=== PATIENT | male | born 1965 | race Caucasian/White ===

== ENCOUNTER 2016-03-28 09:14 | Observation (INO) | payer OTHER ==
[2016-03-28] MEDS ORDERED: DIAZEPAM 5 MG TAB PO ONE (09:17)
[2016-03-28] MEDS ORDERED: diphenhydrAMINE 25 MG CAP PO ONE ×3 (09:17→09:44)
[2016-03-28] MEDS ORDERED: NS 1,000 ML IV ONE (09:17)
[2016-03-28] MEDS ORDERED: ceFAZolin 2 GM/DEXTROSE 100 ML IV ONE (09:17)
[2016-03-28] MEDS ORDERED: BACITRACIN IRRIGATION/NS 50,000 UNITS/1,000 ML BTL IRR ONE (09:17)
--- NOTE | 2016-03-28 09:32 | CPEKG ---
Heart Rate: 50 RR Interval: 1200 P-R Interval: 144 QRSD Interval: 92 QT Interval: 480 QTC Interval: 438 P [place]: 60 QRS [place]: 11 T Wave [place]: 38 EKG Severity - NORMAL ECG - EKG Impression: SINUS RHYTHM Electronically Signed By: Mehul Arceo 28-Mar-2016 10:56:02
[2016-03-28] MEDS ORDERED: DIAZEPAM 5 MG TAB ONE (09:44)
[2016-03-28 09:52] LABS: % IMMATURE GRANULYOCYTES 0.2 % (0.0-1.1); ABSOLUTE IMMATURE GRANULOCYTES 0.01 10^3/uL (0.00-0.10); ADD DIFF? NO; ADD MORPH? NO; ADD SCAN? NO; ATYPICAL LYMPHOCYTE FLAG 20 (0-99); FRAGMENT RBC FLAG 0 (0-99); HEMATOCRIT 42.6 % (40.0-51.0); HEMOGLOBIN 14.9 g/dL (13.7-17.5); LEFT SHIFT FLG 0 (0-99); LIPEMIA HEMOLYSIS FLAG 90 (0-99); MEAN CELL HEMOGLOBIN 31.2 pg (27.9-34.1); MEAN CELL VOLUME 89.3 fL (81.5-99.8); MEAN PLATELET VOLUME 10.1 fL (8.7-11.7); PLATELET CLUMPS FLAG 0 (0-99); PLATELET COUNT 128 10^3/uL (150-400); RED BLOOD CELL COUNT 4.77 10^6/uL (4.40-6.38); RED CELL DISTRIBUTION WIDTH 11.9 % (11.5-15.2)
[2016-03-28 10:01] LABS: INR 1.08 (0.83-1.16); PROTIME(PATIENT) 13.9 SEC (12.0-15.0)
[2016-03-28 10:10] LABS: ANION GAP 12 mEq/L (8-16); CALCIUM 9.5 mg/dL (8.5-10.4); CARBON DIOXIDE 26 mEq/l (22-31); CHLORIDE 108 mEq/L (97-110); CREATININE 0.8 mg/dL (0.7-1.3); GLOMERULAR FILTRATION RATE > 60; GLUCOSE 92 mg/dL (70-100); SODIUM 146 mEq/L (134-144)
[2016-03-28] MEDS ORDERED: MIDAZOLAM 2 MG/2 ML VIAL ONE ×2 (11:51→13:09)
[2016-03-28] MEDS ORDERED: fentaNYL 100 MCG/2 ML INJ ONE ×2 (11:51→13:09)
[2016-03-28] MEDS ORDERED: LIDO/EPI 1% **for epidural** 30 ML SDV ONE (11:51)
[2016-03-28] MEDS ORDERED: LIDOCAINE 1% 30 ML SDV ONE (11:51)
[2016-03-28] MEDS ORDERED: BUPIVACAINE 0.5% 30 ML SDV ONE (11:51)
[2016-03-28] MEDS ORDERED: IOPAMIDOL (ISOVUE-300) 200 ML BTL IV ONE (11:52)
--- NOTE | 2016-03-28 12:44 | SUROPNOTE ---
[facility] Operative Report - Surgery Date of Procedure: 03/28/16 Indication: This patient is a 50 year old man presenting for placement of permanent pacemaker secondary to symptomatic bradycardia. The patient has a several month history of episodic periods of fatigue, weakness, and lethargy, associated with periods of sinus bradycardia. The patient has documented heart rates in the high 30s and low 40s associated with feeling poorly. These symptoms are moderate in severity and lifestyle limiting. He has had a normal R/ LHC, cardiac MRI, endocrine workup, and negative testing for lyme disease. Procedure Performed: 1. Placement of a dual chamber permanent pacemaker Description of procedure: Risks, benefits, and alternatives were discussed in detail. Informed consent was obtained. We discussed various options for devices. Patient was brought to the catheterization laboratory where a time out was performed. Left subclavian venography was performed via left arm IV, showing anatomically normal and widely patent left subclavian vein. Left anterior chest was sterilely prepped and draped. Patient received Ancef 2g intravenously. 2% lidocaine and 0.5% Marcaine were utilized for local anesthetic. A skin incision was made with a # 10 blade and carried down to pectoralis fascia using Bovie, and bleeders were cauterized. Site for the pocket was anesthetized with lidocaine with epinephrine. The pocket was created by blunt dissection and packed with single Ray-Camilla antibiotic-soaked gauze. The patient was placed in Trendelenburg position. Then, under fluoroscopic guidance, the subclavian vein was punctured with an 18-gauge thin wall needle and cannulated with 0.035 J-tip guidewire. An 8-British peel-away introducing sheath was placed through which a second 0.035 J- tip guidewire was placed. Sheath was removed and flushed, placed back over the original guidewire, establishing dual guidewire access. Then, through the sheath , a single coil active fixation right ventricular pacing lead was placed. This was positioned in the right ventricular apex and secured in place with the active fixation helix. There was adequate pacing and sensing, and the lead was sutured in place with a suture sleeve and two separate 0 Ethibond sutures. Then , over the second guidewire, a 6-British peel-away introducing sheath was placed through which the active fixation right atrial lead was passed. Using a J curved stylette, this was placed in the area of the right atrial appendage and secured in place with the active fixation helix. There was adequate pacing and sensing, and the lead was suture in place with a suture sleeve and two separate 0 Ethibond sutures. Ray-Camilla gauze was moved from the pocket. The pocket was copiously irrigated with antibiotic solution and coated with D-Stat liquid hemostat. Any sites of oozing were cauterized. Pacemaker generator was brought to the field, leads were connected to proper head ports, and all set screws were tightened. Generator was placed in the pocket with the leads posterior, and secured in place with a single 0 Ethibond suture. The pocket was then closed with interrupted layers of 2-0 and 3-0 Vicryl suture and running 4-0 subcuticular Stratafix suture. Benzoin, Steri-Strips, and Opsite were placed. Hardware Implanted: Pacemaker is a [employer]ronik Eluna 8 DR-T ProMRI, model 347215, serial [id number]. Right ventricular lead is a [employer] Solia S 53, model 317590, serial [id number] , threshold 0.6V @ 0.40ms, R wave sensing 8.1mV, impedance 643 Ohms. Right atrial lead is a Bi[employer]ik Solia S 45, model 835593, serial [id number], threshold 1.0V @ 0.40ms, P wave sensing 3.0mV, impedance 448 Ohms.
[2016-03-28] MEDS ORDERED: HYDROCODONE/APAP 5/325 TAB PO PRN (13:39)
[2016-03-28] MEDS ORDERED: OXYCODONE/APAP 5/325 TAB PO PRN (13:39)
--- NOTE | 2016-03-28 14:38 | CPEKG ---
Heart Rate: 60 RR Interval: 1000 P-R Interval: 188 QRSD Interval: 88 QT Interval: 428 QTC Interval: 428 QRS [place]: 3 T Wave [place]: 42 EKG Severity - ABNORMAL ECG - EKG Impression: ATRIAL-PACED RHYTHM Electronically Signed By: Mehul Arceo 28-Mar-2016 15:26:42
--- NOTE | 2016-03-28 16:02 | DX ---
Portable Chest at 1446 hours History: Post pacemaker placement. Comparison: PA and lateral chest March 01, 2012. Findings: Dual-lead left subclavian pacemaker has been placed with leads in expected position overlyi ng the right atrium and ventricle. There is no visible pneumothorax. The lungs are clear. Mild cardio megaly is exaggerated by low lung volumes. Rightward curvature of the thoracic spine is noted. Impression: Dual lead left subclavian pacemaker in expected position with no visible complication.
[2016-03-28] MEDS ORDERED: ACETAMINOPHEN 325 MG TAB PO PRN (19:13)
[2016-03-29 05:05] LABS: % IMMATURE GRANULYOCYTES 0.2 % (0.0-1.1); ABSOLUTE IMMATURE GRANULOCYTES 0.01 10^3/uL (0.00-0.10); ADD DIFF? NO; ADD MORPH? NO; ADD SCAN? NO; ATYPICAL LYMPHOCYTE FLAG 10 (0-99); FRAGMENT RBC FLAG 0 (0-99); HEMOGLOBIN 14.6 g/dL (13.7-17.5); LEFT SHIFT FLG 0 (0-99); LIPEMIA HEMOLYSIS FLAG 90 (0-99); MEAN CELL HEMOGLOBIN 31.3 pg (27.9-34.1); MEAN CELL HEMOGLOBIN CONCENTR. 34.8 g/dL (32.4-36.7); MEAN CELL VOLUME 89.9 fL (81.5-99.8); MEAN PLATELET VOLUME 10.2 fL (8.7-11.7); PLATELET CLUMPS FLAG 0 (0-99); PLATELET COUNT 120 10^3/uL (150-400); RED BLOOD CELL COUNT 4.67 10^6/uL (4.40-6.38); RED CELL DISTRIBUTION WIDTH 11.9 % (11.5-15.2)
[2016-03-29 05:22] LABS: ANION GAP 9 mEq/L (8-16); CALCIUM 8.9 mg/dL (8.5-10.4); CARBON DIOXIDE 24 mEq/l (22-31); CHLORIDE 107 mEq/L (97-110); CREATININE 0.7 mg/dL (0.7-1.3); GLOMERULAR FILTRATION RATE > 60; GLUCOSE 88 mg/dL (70-100); POTASSIUM 4.2 mEq/L (3.5-5.2); SODIUM 140 mEq/L (134-144)
[2016-03-29 07:59] VITALS: BP 129/82; PULSE 70; RESP 15; TEMP 98.4; O2SAT 95
[2016-03-29] MEDS ORDERED: FLUDROCORTISONE ACETATE 0.1 MG TAB PO SCH (09:00)
--- NOTE | 2016-03-29 09:18 | CPEKG ---
Heart Rate: 68 RR Interval: 882 P-R Interval: 140 QRSD Interval: 94 QT Interval: 396 QTC Interval: 422 P [place]: 47 QRS [place]: -1 T Wave [place]: 7 EKG Severity - ABNORMAL ECG - EKG Impression: ATRIAL-PACED COMPLEXES Electronically Signed By: Mehul Arceo 29-Mar-2016 13:16:29
--- NOTE | 2016-03-29 10:28 | SOAPPROG ---
SOAP Progress Note Assessment/Plan: Assessment: Cardiology ([facility]) 1. Symptomatic bradycardia s/p dual chamber PPM implantation on 03/28/15. There were no complications with the procedure. 12 lead EKG shows atrial paced complexes at 68 bpm. Pacer pocket is well-approximated w/ no signs of infection. He has received 3 doses of Ancef. CXR pending. 2. Hypotension, now normotensive since pacer implantation. He is currently treated w/ fludricortisone which I would like him to continue for the time being but high likelihood of dc'ing at follow up visit. Plan: 1. CXR pending. 2. Discharge to home today. 3. The patient will be having a dental procedure within the next week. He will need SBE prophylaxis with amoxicillin 2 g prior to. Rx sent to home pharmacy. 4. Rx for [place] for pain control. 5. Follow up visit scheduled for 04/06/16 at 330 pm 03/29/16 10:23 Objective: Vital Signs Temp Pulse Resp BP Pulse Ox 36.9 C 70 15 129/82 H 95 03/29/16 07:58 03/29/16 07:58 03/29/16 07:58 03/29/16 07:58 03/29/16 07:58 Laboratory Results 03/29/16 04:38 03/29/16 04:38 03/28/16 03/29/16 03/30/16 05:59 05:59 05:59 Intake Total 880 Output Total 750 Balance 130 PT 13.9 SEC (12.0-15.0) 03/28/16 09:43 INR 1.08 (0.83-1.16) 03/28/16 09:43 Physical Exam - Physical Exam General Appearance: WD/WN, alert, no apparent distress Respiratory: chest non-tender, lungs clear, normal breath sounds Cardiac/Chest: normal peripheral pulses, regular rate, rhythm, other (left pectoral pacer pocket well-approximated w/o erythemia, oozing, or swelling) Extremities: No swelling Neuro/Psych: no motor/sensory deficits, alert, normal mood/affect, oriented x 3
--- NOTE | 2016-03-29 10:47 | DX ---
PA and Lateral Chest 10:21 a.m. Indication: Pacemaker placement. Comparison: Portable chest dated 03/28/2016. Findings: A left anterior chest wall dual-lead pacemaker has leads well situated in the right atrium and right ventricle. No pneumothorax or pulmonary edema. Lungs are well aerated and clear. Heart size is normal. Impression: 1. Well-seated dual-lead pacemaker. 2. No pneumothorax or edema. 3. Clear lungs.
--- NOTE | 2016-03-29 19:07 | GDS ---
[f rep st] DISCHARGE SUMMARY DISCHARGE DIAGNOSES: 1. Symptomatic sinus bradycardia. 2. Status post dual chamber permanent pacemaker implantation this hospitalization. 3. Hypotension. HOSPITAL PROCEDURES: 1. Subclavian venography. 2. Placement of dual chamber permanent pacemaker. HOSPITAL COURSE: The patient is a 50-year-old male who presented to our office initially in 2015 with complaint of sinus bradycardia and related fatigue and exertional intolerance. He has un dergone an extensive cardiac workup including nuclear stress testing, echocardiography, multiple ambu latory EKG monitors and cardiac MRI, with no more advanced cardiac pathology underlying his bradycard ia. It had been decided to proceed with dual chamber permanent pacemaker implantation for symptomati c relief and improvement of quality of life. He underwent pacemaker implantation with Dr. Melquiades noguera. There were no complications with this procedure. The patient has done well overnight. The patient has no complaints this morning aside from some tenderness at his left pectoral incision s ite. Otherwise, the site looks very good with minimal swelling, ecchymosis or erythema. The wound i s well approximated with Steri-Strips. He denies any fever or chills overnight. Laboratory studies show normal and stable complete blood count, and normal and stable chemistry panel. A 12 lead EKG morning shows atrial paced rhythm at 68 beats per minute. His device was interrogated this mornin g with an excellent report on normal pacer function. His blood pressure is remarkably normal this mo rning with blood pressures running in the one-teens to 120s over 80 mmHg. The patient will be discha rged today in good condition. DISCHARGE MEDICATIONS: Fludrocortisone 0.1 mg p.o. daily, [place] 5/325 mg q.4-6 hours as needed for i ncisional pain. FOLLOWUP INSTRUCTIONS: Post pacemaker precautions have been described in detail with the patient. T he bandage was taken off in front of his and she is aware of the dressing and warning signs to manuel carranza for regarding primarily infection at his pacer pocket. Despite his blood pressures being normali zed, it has been decided to continue his fludrocortisone at this time and continue to monitor blood p ressures as they may be artificially elevated in the post-procedural state. He mentions that he may need a dental procedure in the coming week or two because he pulled out a filling over the weekend, a nd he will need endocarditis prophylaxis prior to this procedure. Therefore, amoxicillin 2 g has bee n sent to his home pharmacy with instructions to take 1.5 hours prior to his procedure. Otherwise, tiffany raygoza is recommended to do only mild amounts of activity which include walking and maybe in a week or two some stationary biking. We discussed that he is prohibited from skiing or riding a road bike for at least 3-4 weeks. He will be following up in the office on April 06 at 3:30 p.m., and we will d janeenuss any further changes in management at that time. /[id number]/MODL
== END 2016-03-29 12:37 | disposition home or self-care (01) ==
LOC: FCATH 09:14 → F2W 13:39
PROVIDERS: ADMIT Internal Medicine Interventional Cardiology; ATTEND Internal Medicine Interventional Cardiology
PROC: 0JH606Z Insertion of Pacemaker, Dual Chamber into Chest Subcutaneous Tissue and Fascia, Open Approach (ICD-10-PCS; principal; 2016-03-28)
DX: R00.1 Bradycardia, unspecified (principal); Z95.0 Presence of cardiac pacemaker; I95.9 Hypotension, unspecified
CPT/HCPCS: 33208; 71010; 71020; 93005; A4649; G0378; J0690; J2250; J3010; Q9967

== ENCOUNTER → 2016-09-28 | Outpatient (CLI) | payer OTHER | LOC: FIMAGING 08:06 | PROVIDERS: ATTEND Internal Medicine Gastroenterology | DX: R11.0 Nausea (principal) | CPT/HCPCS: 78264; A9541 ==

== ENCOUNTER → 2017-05-07 | Outpatient (CLI) | payer OTHER | LOC: BMCIMAGING 10:13 | PROVIDERS: ATTEND Emergency Medicine | DX: R05 Cough (principal); R06.02 Shortness of breath ==

== ENCOUNTER 2018-07-01 09:30 | Emergency (ER) | payer OTHER ==
[2018-07-01 09:40] VITALS: BP 126/87
--- NOTE | 2018-07-01 10:20 | EDPHY ---
H & P Time Seen by Provider: 07/01/18 10:03 HPI/ROS: CHIEF COMPLAINT: Increased floaters HISTORY OF PRESENT ILLNESS: The patient is a 52-year-old male who presents emergency department after noticing increased floaters in his right eye. Patient states that yesterday morning while at breakfast and chewing he had some flashes of light in his right eye. This resolved until the afternoon. Around 4-5 p.m he developed increased floaters. He states that he does have floaters at baseline but this was slightly more. He denies any trauma. No eye pain. No visual changes other than the floater. No headache. No nausea or vomiting. Patient takes aspirin. He is not on blood thinners. REVIEW OF SYSTEMS: 10 systems were reveiwed and are negative with the exception of the elements mentioned in the history of present illness. Past Medical/Surgical History: Includes pacemaker Smoking Status: Never smoked Physical Exam: Vitals noted GENERAL: Well-appearing, in no acute distress, alert. Visual acuity: Noted. Eyelids: Normal inspection. Conjunctiva and sclera: Normal inspection. No foreign material. No subconjunctival hemorrhage. No exudate. Not injected. Corneas: Normal inspection. EOMs: Intact. Pupils: PERRL, normal accommodation. Anterior chambers: Normal inspection. No hyphema. No cells or flare. Posterior segments: Normal funduscopic exam Constitutional: Initial Vital Signs Temperature (C) 36.6 C 07/01/18 09:37 Heart Rate 70 07/01/18 09:37 Respiratory Rate 17 07/01/18 09:37 Blood Pressure 126/87 H 07/01/18 09:37 O2 Sat (%) 99 07/01/18 09:37 O2 Delivery Mode Room Air Allergies/Adverse Reactions: No Known Allergies Allergy (Verified 07/01/18 09:37) Home Medications: Medication Instructions Recorded Aspirin 81mg (*) 07/01/18 Wellbutrin 100mg (*) 07/01/18 Medical Decision Making ED Course/Re-evaluation: In the emergency department I discussed possible etiologies with the patient. I answered all of his questions. At this time I do not feel he has an ocular emergency. He does need close follow-up with the eye doctor. I discussed limitations of my exam. He will call tomorrow morning to make an appointment. If his symptoms worsen he will return. Differential Diagnosis: My differential includes but is not limited to floaters, vitreous hemorrhage, retinal detachment Departure - Departure Disposition: Home, Routine, Self-Care Clinical Impression: Floater, vitreous Qualifiers: Laterality: right Qualified Code(s): H43.391 - Other vitreous opacities, right eye Condition: Good Instructions: Visual Floaters (ED) Additional Instructions: Return with increasing floaters, visual change, headache, vomiting or any other concerns. Referrals: Dillon Harley MD [Medical Doctor] - 1-2 days without fail
== END 2018-07-01 10:25 | disposition home or self-care (01) ==
DX: H43.391 Other vitreous opacities, right eye (principal)